=== PATIENT | female | born 1975 | race American Indian/Alaskan Native ===

== ENCOUNTER 2024-12-09 16:50 | Emergency (ER) | payer BC ==
[~2024-12-09] VITALS: Ht 182.9 cm; Wt 117.9 kg
[2024-12-09] MEDS ORDERED: DEXAMETHASONE SODIUM PHOSPHATE 4 MG/ML VIAL IM ONE (17:30)
[2024-12-09] MEDS ORDERED: CEFTRIAXONE SODIUM 1,000 MG VIAL IM ONE (17:30)
[2024-12-09] MEDS ORDERED: TETANUS & DIPHTHERIA TOX,ADULT 0.5 ML VIAL IM ONE (17:45)
[2024-12-09] MEDS ORDERED: LIDOCAINE HCL 1% 10ML VIAL IJ ONE (17:45)
[2024-12-09] MEDS ORDERED: CEPHALEXIN500 M1 PO (19:50)
[2024-12-09] MEDS ORDERED: IBU600 MG PO (19:50)
[2024-12-09] MEDS ORDERED: DEXAMETHASONE4 MG PO (19:50)
== END 2024-12-09 20:08 | disposition home or self-care (01) ==
LOC: ER 16:51
DX: S61.012A Laceration without foreign body of left thumb without damage to nail, initial encounter (principal); W18.39XA Other fall on same level, initial encounter; Y93.89 Activity, other specified; Y92.821 Forest as the place of occurrence of the external cause; Y99.9 Unspecified external cause status; Z91.040 Latex allergy status